=== PATIENT | male | born 1985 | race African-American/Black ===

== ENCOUNTER 2019-05-25 13:21 | Emergency (ER) | payer SELFPAY ==
[~2019-05-25] VITALS: Ht 198.1 cm; Wt 104.3 kg
[2019-05-25 13:56] VITALS: BP 136/69
--- NOTE | 2019-05-25 14:06 | NUR ---
TO ER TODAY- C/O DYSURIA WITH ABNORMAL URINARY DISCHARGE
[2019-05-25 14:39] LABS: APPEARANCE,URINE Clear (CLEAR); BILIRUBIN,URINE Negative (NEGATIVE); BLOOD, URINE Negative Ery/uL (NEGATIVE); COLOR,URINE Yellow (YELLOW); KETONES,URINE Negative (NEGATIVE); LEUKOCYTE ESTERASE ,URINE Negative (NEGATIVE); NITRITE, URINE Negative (NEGATIVE); PH,URINE 5.5 (5.0-8.0); PROTEIN,URINE Negative (NEGATIVE); UGLUCOSE Negative (NEGATIVE); UROBILINOGEN,URINE 0.2 EU/dL (0.2)
[2019-05-25] MEDS ORDERED: AZITHROMYCIN 250 MG TABLET PO ONE (16:00)
[2019-05-25] MEDS ORDERED: CEFTRIAXONE 500 MG VIAL IM ONE (16:00)
[2019-05-25] MEDS ORDERED: AZITHROMYCIN 250 MG TABLET ONE (16:11)
[2019-05-25] MEDS ORDERED: CEFTRIAXONE 500 MG VIAL ONE (16:11)
[2019-05-25] MEDS ORDERED: LIDOCAINE 1% INJ 50 ML MDV IJ ONE (16:12)
== END 2019-05-25 16:21 | disposition home or self-care (01) ==
LOC: ER 13:23
DX: A64 Unspecified sexually transmitted disease (principal); F12.10 Cannabis abuse, uncomplicated; Z72.51 High risk heterosexual behavior
CPT/HCPCS: 81001; 87081; 87491; 87591; 96372; 99283; J0696; J3490; 81000-TC

== ENCOUNTER 2019-07-02 14:28 | Emergency (ER) | payer SELFPAY ==
[~2019-07-02] VITALS: Ht 198.1 cm; Wt 103.4 kg
--- NOTE | 2019-07-02 14:37 | NUR ---
called for triage not in the waiting room
--- NOTE | 2019-07-02 14:45 | NUR ---
called for triage not in the waiting room
--- NOTE | 2019-07-02 14:55 | NUR ---
penis discharges since yesterday. Patient a/ox4, breathing even and unlabored, no sob noted, kept comfortable.
[2019-07-02] MEDS ORDERED: CEFTRIAXONE 500 MG VIAL IM ONE (15:30)
[2019-07-02] MEDS ORDERED: AZITHROMYCIN 250 MG TABLET PO ONE (15:30)
[2019-07-02] MEDS ORDERED: AZITHROMYCIN 250 MG TABLET ONE (15:41)
[2019-07-02] MEDS ORDERED: CEFTRIAXONE 500 MG VIAL ONE (15:41)
[2019-07-02] MEDS ORDERED: LIDOCAINE /MPF 1% VIAL 5 ML VIAL ONE (15:41)
[2019-07-02 16:01] VITALS: BP 142/78
== END 2019-07-02 16:01 | disposition home or self-care (01) ==
LOC: ER 14:30
DX: Z20.2 Contact with and (suspected) exposure to infections with a predominantly sexual mode of transmission (principal)
CPT/HCPCS: 96372; 99283; J0696; J3490

== ENCOUNTER 2019-07-07 06:06 | Emergency (ER) | payer SELFPAY ==
[~2019-07-07] VITALS: Ht 198.1 cm; Wt 106.6 kg
[2019-07-07 06:15] VITALS: BP 127/79
[2019-07-07] MEDS ORDERED: PIPERACILLIN /TAZOBACTAM 3.375 G in IV D5W 50 ML IV ONE (06:30)
[2019-07-07] MEDS ORDERED: PIPERACILLIN /TAZOBACTAM 3.375 G VIAL IV ONE (06:42)
--- NOTE | 2019-07-07 07:12 | NUR ---
Patient discharged to home in stable condition. Written and verbal after care instructions given. Patient verbalizes understanding of instruction.
== END 2019-07-07 07:12 | disposition home or self-care (01) ==
LOC: ER 06:07
DX: A74.9 Chlamydial infection, unspecified (principal); F12.90 Cannabis use, unspecified, uncomplicated; Z72.9 Problem related to lifestyle, unspecified
CPT/HCPCS: 96365; 99284; J2543 ×2; J7060